=== PATIENT | female | born 1995 | race Caucasian/White ===

== ENCOUNTER 2017-09-07 14:12 | Observation (INO) ==
[2017-09-07 14:53] LABS: Hematocrit [HCT] 28.1 % (37.0-47.0); Hemoglobin [HGB] 8.8 g/dL (12.0-16.0); MEAN CORPUSCULAR HEMOGLOBIN 23.2 PG (27-31); MEAN CORPUSCULAR HGB CONC 31.3 g/dL (33-37); MEAN CORPUSCULAR VOLUME 73.9 FL (81-99); RED BLOOD COUNT 3.8 10^6/uL (4.20-5.40)
--- NOTE | 2017-09-07 14:54 | DI ---
VIVEK CHEST X-RAY, 09/07/2017 2:13 PM : Clinical History: Shortness of breath with orthopnea. The patient is 38 weeks . This history was provided to me by the attending physician. Previous Exam: None at this facility. There is no acute soft tissue or bony abnormality. There is cardiomegaly. There is increased vascular ity consistent with the patient being . CHF is not appreciated. There is "straightening" of t he left heart border consistent with left atrial enlargement. Lungs are clear. Mediastinal structures are normal. There are no pulmonary nodules. Additional shielding precautions were utilized. Readin. Cardiomegaly without definite CHF. There is increased vascularity most likely related to the preg nant status. 2. Left atrial enlargement is suspected. Echocardiography is recommended to see if there is a cardio myopathy or a pericardial effusion.
[2017-09-07 15:04] LABS: BLOOD UREA NITROGEN 7 mg/dL (7-22); BUN/CREATININE RATIO 8.75 (6-20); SERUM ALBUMIN 3.2 g/dL (3.5-4.8); Uric Acid 6.9 mg/dl (2.5-6.2)
[2017-09-07 15:27] LABS: BACTERIA,URINE MODERATE; RENAL EPITHELIAL CELLS,URINE FEW; SQUAMOUS EPITHELIAL CELL,UR MANY
--- NOTE | 2017-09-07 15:47 | EKG ---
[address] [address] Measurements Intervals [place] Rate: 54 P: 78 SC: 129 QRS: 78 QRSD: 79 T: 53 QT: 433 QTc: 419 Interpretive Statements SINUS BRADYCARDIA No previous ECG available for comparison Electronically Signed On 09-08-17 17:29:26 MDT by Elgin Royal [email or web address]
[2017-09-07 16:43] VITALS: O2SAT 98
[2017-09-07] MEDS ORDERED: BETAMET ACET/BETAMET NA PH 6 MG/1 ML - 5 ML ONE (17:59)
[2017-09-07] MEDS: BETAMET ACET/BETAMET NA PH 6 MG/1 ML - 5 ML IM SCH (18:02)
[2017-09-07] MEDS ORDERED: ONDANSETRON 4 MG/2 ML VIAL IVP PRN (18:40)
[2017-09-07] MEDS ORDERED: Ondansetron ODT Tab 4 MG TAB PO PRN (18:40)
[2017-09-07] MEDS ORDERED: LIDOCAINE W/ SODIUM BICARB 0.5 ML SYR SUBD PRN (18:40)
[2017-09-07] MEDS ORDERED: CALCIUM CARBONATE 500 MG (TUMS) CHEWABLE TABLET PO PRN (18:40)
--- NOTE | 2017-09-07 20:03 | OB.PROGRES ---
Date and Time of Service: 09/07/17 @ 1945 Interval History: Pt is a 22 yo G1 at 36 6/7 weeks by first trimester u/s who presented to the office today c/o chest pressure when lying down. This has been on-going x 3 days. No cough. No sx which are typical for her asthma. She denies AUGUSTIN, RUQ pain , vision symptoms. She did have a lot of swelling in her legs, starting about 3 days ago. She denies any contractions, vag bleeding or gushes of fluid. Baby has been moving normally. She was sent to L&D for monitoring. BP have run 160-170s/80-90s. Her urine protein:creatinine ratio is 1102. A 24 hour urine is in progress. Her labs show normal platelets and LFTs. Her uric acid is elevated at 6.9. LDH is normal. Hgb is low at 8.8 with microcytic indices; she reports that she has not been taking her iron as previously directed. Objective - Cervical Exam Cervical Exam: c/t/high per RN Kyra [place]: occasional, irregular contractions. Pt is not feeling them. Heart Rate: 130s, reactive. No decels noted. Heart Rate Interpretation Category: Category I - Labs CBC and BMP: 09/07/17 14:46 09/07/17 14:46 - Vital Signs Last Taken Vital Signs: Vital Signs - Last Taken Temperature 98.1 F 09/07/17 19:00 Pulse Rate 58 L 09/07/17 19:00 Respiratory Rate 16 09/07/17 19:13 Blood Pressure 154/88 09/07/17 19:00 Pulse Ox 98 09/07/17 15:20 Assessment and Plan - Patient Problems (1) Gestational hypertension affecting first Current Visit: Yes Status: Acute Code(s): O13.9 - Gestational [- induced] hypertension without significant proteinuria, unspecified trimester - Assessment / Plan Additional Assessment/Plan Details: -admit observation for now. -pt advised that she cannot chew tobacco while on the unit. -blood pressure monitoring. -repeat labs in the am. -received first dose of betamethasone this afternoon, will repeat tomorrow afternoon. -24 hour urine for protein in progress. -CXR this afternoon showed cardiomegaly, echocardiogram done tonight to look for a cardiomyopathy or pericardial effusion. Will get results on this tomorrow. -if echo is unremarkable, will probably end up inducing pt with cytotec (KWESI is normal at 13)given that she will be 37 weeks tomorrow. -close observation.
--- NOTE | 2017-09-07 20:30 | DI ---
LIMITED OBSTETRICAL ULTRASOUND, 09/07/2017 4:46 PM Clinical History: Gestational hypertension. Previous Exam: 09/01/2017. EDC based on early OB US: 09/29/2017. There is a single live IUP currently in vertex presentation. Amnionic fluid content is normal. KWESI is 13.7 cm. activity is observed as follows: cardiac and extremity. The placenta is posterior and left lateral corpus and Grade 3. heart rate varies between 116-140 beats/minute and regular. C ord Doppler ultrasound shows diastolic flow. The systolic/diastolic ratios are 2.7, 3.1, and 2.0, res pectively. BPD, HC, AC, and FL measurements are 89 mm, 324 mm, 332 mm, and 69 mm, respectively. These measurements correspond to EGA values of 36 weeks 1 day, 36 weeks 5 days, 37 weeks 1 day, and 35 wee ks 3 days, respectively. Composite EGA is 36 weeks 3 days. The US EDC is 10/02/2017. EDC based on floyd y OB US is 09/29/2017. LMP percentile is 46%. Estimated weight is 2960 g, plus or minus 432 g. Readin. Single live fetus with vertex presentation and normal amniotic fluid content. KWESI is 13.7 cm. Donis centa is posterior corpus and left lateral corpus and grade 3. 2. The composite EGA is 36 weeks 3 days with an ultrasound EDC of 10/02/2017. Based on the early OB u ltrasound, the EDC would be 09/29/2017. 3. Cord Doppler ultrasound is normal. 4. LMP percentile is 46%. Estimated weight is 2960 g, plus or minus 432 g.
[2017-09-08 05:17] LABS: Hematocrit [HCT] 28.4 % (37.0-47.0); Hemoglobin [HGB] 8.8 g/dL (12.0-16.0); MEAN CORPUSCULAR HEMOGLOBIN 22.9 PG (27-31); MEAN CORPUSCULAR VOLUME 73.8 FL (81-99); MEAN PLATELET VOLUME 12.5 FL (7.4-12.2); RED BLOOD COUNT 3.85 10^6/uL (4.20-5.40)
[2017-09-08 05:30] LABS: BLOOD UREA NITROGEN 7 mg/dL (7-22); BUN/CREATININE RATIO 8.75 (6-20); SERUM ALBUMIN 3.4 g/dL (3.5-4.8); Uric Acid 7.2 mg/dl (2.5-6.2)
[2017-09-08] MEDS: BETAMET ACET/BETAMET NA PH 6 MG/1 ML - 5 ML IM SCH (05:30)
[2017-09-08] MEDS ORDERED: Prenatal Multivitamin Tab 1 TAB TAB PO SCH (09:00)
[2017-09-08 15:03] VITALS: RESP 16
--- NOTE | 2017-09-08 16:15 | PTI REPORT ---
Thank you for the referral of Ruby Peralta. She was seen on 09/08/17 for an inpatient evaluation secondary to hip and low back pain. SUBJECTIVE: The patient is a 22-year-old female who is 37 weeks . 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 The patient states that she presented to the hospital secondary to some chest pain and reports that she had high blood pressure. The patient states that she has been being monitored since last night and is very uncomfortable secondary to her and also the bed that she has been in. The patient reports that this is her first . The therapist did discuss trying pool therapy with the patient in order to offload her low back and hips and to allow her to get out of bed and perform some movement as well as manual therapy in the form of passive range of motion for bilateral lower extremities and Kinesio tape for pain modulation. The patient was interested in the pool exercises and manual therapy along with the taping and agreed to participate with physical therapy. The okay was received from the patient's nurse in order to perform pool exercises. PAST MEDICAL HISTORY: Past medical history can be found in the patient's medical record. OBJECTIVE FINDINGS: General observations: The patient was alert and oriented to setting upon PT arrival. Ambulation: The patient was able to ambulate from her room down to therapy without any issues. ASSESSMENT: The patient has good rehab potential. Problem List: Pain in low back and bilateral hips Short-Term Goals: To be met by discharge from inpatient: Patient will report improvement in symptoms following physical therapy RX. Long-Term Goals: To be met following discharge from inpatient: Patient may benefit from outpatient physical therapy for pool and gentle stretching until she does have her baby. The patient states there is a possibility she may be induced later today. TREATMENT PLAN: Patient will be seen for one visit only. It is recommended if she does go home , she participate with outpatient therapy until she does have her baby for hip and low back pain management. INITIAL TREATMENT: Treatment today consisted of the initial evaluation followed by the patient ambulating down to the therapy gym without any issues. The patient did perform pool exercises consisting of hanging traction and walking x30 minutes total. The patient then received manual therapy in the form of passive range of motion for bilateral lower extremities along with gentle manual traction followed by Kinesio taping for low back pain. The patient reported an improvement in symptoms following treatment. B[place]
[2017-09-08] MEDS ORDERED: Lactated Ringers-OB Dept 1,000 ML PRIMARY IV SCH (17:00)
[2017-09-08 17:43] VITALS: BP 136/85
[2017-09-08] MEDS ORDERED: Iron Sucrose Inj 300 MG in Sodium Chloride 0.9% 250 ML IV ONE (18:02)
[2017-09-08 20:00] LABS: 24 HOUR URINE TOTAL VOLUME 1100 ML
[2017-09-08 21:37] VITALS: TEMP 98.2
--- NOTE | 2017-09-17 22:57 | OB.PROGRES ---
Date and Time of Service: 09/08/17 @ 0850 Interval History: Ruby reports that she did get some rest last noc. Feeling well today. States that her back pain and shortness of breath when lying flat have resolved. Not really feeling any contractions. Denies vag bleeding or leak of fluid. Baby is moving around normally. Denies AUGUSTIN, vision changes, RUQ pain. Still feels like she is very puffy in her legs, hands and face. No sx of anemia, including weakness, fatigue, dizziness. Objective - Cervical Exam Cervical Exam: / [place]: occasional, irregular contractions Heart Rate: category 1 strip, no decels noted. Heart Rate Interpretation Category: Category I - Labs CBC and BMP: 09/08/17 04:53 09/08/17 04:53 - Vital Signs Last Taken Vital Signs: Vital Signs - Last Taken Temperature 98.2 F 09/08/17 19:00 Pulse Rate 65 09/08/17 14:00 Respiratory Rate 16 09/08/17 15:00 Blood Pressure 136/85 09/08/17 14:00 Pulse Ox 98 09/08/17 15:00 Assessment and Plan - Patient Problems (1) Gestational hypertension affecting first Status: Acute Code(s): O13.9 - Gestational [-induced] hypertension without significant proteinuria, unspecified trimester (2) Iron deficiency anemia during Status: Acute Code(s): O99.019 - Anemia complicating , unspecified trimester; D50.9 - Iron deficiency anemia, unspecified - Assessment / Plan Additional Assessment/Plan Details: -will continue observation today. -collecting 24 hour urine for protein--this will be complete tonight at 1900. -consider giving a dose of venofer prior to d/c -will get second dose of betamethasone this afternoon. -continue very close observation. DISCHARGE NOTE: ADMITTING DIAGNOSIS: gestational hypertension DISCHARGE DIAGNOSIS: pre-eclampsia without severe features at this point; iron deficiency anemia OUTCOME: monitoring, completed course of betamethasone DISPO: Home Diet: low salt, regular F/u: in 2 days for NST and labs on L&D.
== END 2017-09-08 21:30 | disposition home or self-care (01) ==
LOC: MOB LAB 14:12 → OBIP 14:12
PROVIDERS: ADMIT Family Medicine; ATTEND Family Medicine